=== PATIENT | male | born 1955 | race Caucasian/White ===

== ENCOUNTER 2019-02-12 08:55 | Emergency (ER) | payer OTHER ==
[2019-02-12] MEDS ORDERED: HYDROcodone/Acetaminophen 5/325 mg Tablet ONE (10:11)
== END 2019-02-12 10:35 | disposition home or self-care (01) ==
LOC: ERS 08:55
DX: M54.5 Low back pain (principal); I25.10 Atherosclerotic heart disease of native coronary artery without angina pectoris; Z79.899 Other long term (current) drug therapy
CPT/HCPCS: 99283

== ENCOUNTER 2021-01-14 07:50 | Outpatient (CLI) | payer MEDICARE | END 2021-01-14 07:51 | disposition home or self-care (01) | LOC: BICRAD 07:50 | PROVIDERS: ATTEND Family Medicine | DX: M43.16 Spondylolisthesis, lumbar region (principal); M47.816 Spondylosis without myelopathy or radiculopathy, lumbar region | CPT/HCPCS: 72110 ==

== ENCOUNTER 2021-06-19 07:45 | Emergency (ER) | payer MEDICARE ==
[2021-06-19] MEDS ORDERED: Fentanyl 100 MCG/2 ML VIAL ONE (08:39)
[2021-06-19] MEDS ORDERED: Lorazepam 2 MG/ML VIAL ONE (08:39)
== END 2021-06-19 09:30 | disposition home or self-care (01) ==
LOC: ERS 07:45
DX: S32.029A Unspecified fracture of second lumbar vertebra, initial encounter for closed fracture (principal); G89.29 Other chronic pain; I25.10 Atherosclerotic heart disease of native coronary artery without angina pectoris; Z79.82 Long term (current) use of aspirin; Z79.899 Other long term (current) drug therapy; W07.XXXA Fall from chair, initial encounter
CPT/HCPCS: 72131; 96374; 96375; J2060; J3010

== ENCOUNTER 2021-08-10 09:50 | Outpatient (CLI) | payer MEDICARE | END 2021-08-10 09:51 | disposition home or self-care (01) | LOC: BICRAD 09:50 | PROVIDERS: ATTEND Anesthesiology | DX: S32.020D Wedge compression fracture of second lumbar vertebra, subsequent encounter for fracture with routine healing (principal) | CPT/HCPCS: 72100 ==

== ENCOUNTER 2021-10-28 10:02 | Outpatient (CLI) | payer MEDICARE | END 2021-10-28 10:03 | disposition home or self-care (01) | LOC: NM 10:02 | PROVIDERS: ATTEND Family Medicine | DX: S32.020G Wedge compression fracture of second lumbar vertebra, subsequent encounter for fracture with delayed healing (principal) | CPT/HCPCS: 72120; 78315; A9503 ==

== ENCOUNTER 2021-12-13 15:12 | Outpatient (CLI) | payer MEDICARE | END 2021-12-13 15:13 | disposition home or self-care (01) | LOC: BICRAD 15:12 | PROVIDERS: ATTEND Family Medicine | DX: M25.551 Pain in right hip (principal); M25.552 Pain in left hip ==

== ENCOUNTER 2025-06-10 12:04 | Outpatient (CLI) | payer MEDICARE | END 2025-06-10 12:05 | disposition home or self-care (01) | LOC: ULT 12:04 | PROVIDERS: ATTEND Orthopaedic Surgery | DX: R60.9 Edema, unspecified (principal); I82.401 Acute embolism and thrombosis of unspecified deep veins of right lower extremity ==